=== PATIENT | female | born 1995 | race Caucasian/White ===

== ENCOUNTER 2017-09-21 18:40 | Emergency (ER) | payer MEDICAID, OTHER ==
--- NOTE | 2017-09-21 19:32 | ERPHSYRPT ---
- History of Present Illness Time Seen by Provider: 09/21/17 19:10 Source: patient Exam Limitations: clinical condition Patient Subjective Stated Complaint: Tooth pain on the left upper side of mouth where in the very back that has shooting pain to the jaw and to the ear Triage Nursing Assessment: Pt A&O x3, stated that she has pain on the left upper side of mouth in the very back and the pain shoots to her jaw and ear, BP 154/91, all other vitals wnl, doesn't appear to be in any other distress Physician History: PATIENT COMPLAINS OF LEFT UPPER TOOTHACHE FOR 1 WEEK, HAS ASSOCIATED RADIATION OF PAIN TO LEFT EAR, DENIES GUM SWELLING, FEVER, DIFFICULTY BREATHING OR SWALLOWING. Timing/Duration: gradual onset Severity: severe ENT Location: dental Prearrival Treatment: no prearrival treatment Modifying Factors: Improves With: nothing Associated Symptoms: jaw pain, tooth pain Allergies/Adverse Reactions: shellfish derived Allergy (Verified 02/24/14 17:48) iodine Adverse Reaction (Verified 09/21/17 19:15) Hx Tetanus, Diphtheria Vaccination/Date Given: No Hx Influenza Vaccination/Date Given: No Hx Pneumococcal Vaccination/Date Given: No Immunizations Up to Date: Yes - Review of Systems Constitutional: No Fever, No Chills Eyes: No Symptoms Ears, Nose, & Throat: Other (DENTAL PAIN) Respiratory: No Cough, No Dyspnea Cardiac: No Chest Pain, No Edema, No Syncope - Past Medical History Pertinent Past Medical History: No Neurological History: No Pertinent History ENT History: No Pertinent History Cardiac History: No Pertinent History Respiratory History: No Pertinent History Endocrine Medical History: No Pertinent History Musculoskeletal History: No Pertinent History GI Medical History: No Pertinent History Psycho-Social History: No Pertinent History Female Reproductive Disorders: Other - Past Surgical History Past Surgical History: Yes Neuro Surgical History: No Pertinent History Cardiac: No Pertinent History Respiratory: No Pertinent History Gastrointestinal: No Pertinent History Genitourinary: No Pertinent History Musculoskeletal: No Pertinent History Female Surgical History: No Pertinent History Other Surgical History: tonsils - Social History Smoking Status: Current every day smoker How long have you smoked: 3 years Exposure to second hand smoke: Yes Drug Use: none Patient Lives Alone: No - Female History Hx Last Menstrual Period: 07/24/2017 Hx Now: (unsure) - Nursing Vital Signs Nursing Vital Signs: Initial Vital Signs Temperature 98.4 F 09/21/17 19:07 Pulse Rate 95 H 09/21/17 19:07 Blood Pressure 154/91 09/21/17 19:07 O2 Sat by Pulse Oximetry 99 09/21/17 19:07 Pain Scale Pain Intensity 7 - Physical Exam General Appearance: no apparent distress, alert Eye Exam: bilateral eye: normal inspection, PERRL, EOMI Ear Exam: bilateral ear: auricle normal, canal normal Nasal Exam: normal inspection Throat Exam: normal, pharynx normal, dental tenderness (WIDESPREAD DENTAL CARIES ) Neurologic Exam: alert, oriented x 3 Skin Exam: normal color SpO2 Interpretation: normal SpO2: 99 Oxygen Delivery: Room Air - Departure Time of Disposition: 19:35 Departure Disposition: Home Clinical Impression: DENTAL CARIES Condition: Stable Critical Care Time: No Referrals: DOCTOR,NO FAMILY [Primary Care Provider] - Additional Instructions: CONSULT A DENTIST AND A PRIMARY CARE PROVIDER NEXT WEEK FOR FOLLOWUP. ANTIBIOTIC AMOXICILLIN 500MG EVERY 8 HOURS FOR 10 DAYS. TORADOL 10MG EVERY 6 HOURS FOR MILD TO MODERATE PAIN AND [place] 5/325 EVERY 4 HOURS FOR SEVERE PAIN. Prescriptions: Hydrocodone/Acetaminophen [[place] 5-325 Tablet] 1 each PO Q4HPRN PRN #10 tablet MDD 4 PRN Reason: Pain Ketorolac Tromethamine [Toradol] 10 mg PO Q6H PRN PRN #20 tablet PRN Reason: Pain Amoxicillin [Amoxil] 500 mg PO TID #30 capsule
[2017-09-21 19:56] VITALS: BP 149/88; PULSE 89; O2SAT 98
== END 2017-09-21 19:40 | disposition home or self-care (01) ==
LOC: ED 18:40
DX: K02.9 Dental caries, unspecified (principal)
CPT/HCPCS: 99281